=== PATIENT | female | born 1995 | race Hispanic/Latino ===

== ENCOUNTER 2021-08-15 11:17 | Inpatient (IN) | payer MEDICAID ==
[~2021-08-15] VITALS: Ht 157.5 cm; Wt 68.9 kg
[2021-08-15] MEDS ORDERED: LACTATED RINGERS 1000ML 1,000 ML IV ONE (12:01)
[2021-08-15 12:44] LABS: BASOPHILS % (AUTO) 0.5 % (0.0-5.0); EOSINOPHILS % (AUTO) 0.7 % (0.0-8.0); HEMATOCRIT 35.3 % (36-48); LYMPHOCYTES % (AUTO) 17.5 % (21.0-51.0); MEAN CORPUSCULAR HEMOGLOBIN 24.2 pg (27.0-33.0); MEAN CORPUSCULAR HGB CONC 31.4 g/dL (32.0-36.0); MEAN CORPUSCULAR VOLUME 76.9 fL (79-99); MONOCYTES % (AUTO) 6.8 % (3.0-13.0); NEUTROPHILS % (AUTO) 74.1 % (40.0-77.0); PLATELET COUNT (AUTO) 204 K/uL (130-400); RED BLOOD CELL COUNT(AUTO) 4.59 MIL/uL (4.00-5.50); RED CELL DISTRIBUTION WIDTH 14.3 % (11.0-15.5); WHITE BLOOD COUNT (AUTO) 10.8 K/uL (4.8-10.8)
[2021-08-15 12:47] LABS: APPEARANCE,URINE Clear (CLEAR); BILIRUBIN,URINE Negative (NEGATIVE); COLOR,URINE Yellow (YELLOW); GLUCOSE, URINE (UA) Negative (NEGATIVE); KETONES,URINE Negative (NEGATIVE); LEUKOCYTE ESTERASE ,URINE Trace (NEGATIVE); NITRATE,URINE Negative (NEGATIVE); OCCULT BLOOD,URINE Negative (NEGATIVE); PROTEIN,URINE >=1000 mg/dL (NEGATIVE)
[2021-08-15 12:53] LABS: POTASSIUM 4.1 mmol/L (3.5-5.1)
[2021-08-15 12:54] LABS: CREATININE 0.6 mg/dL (0.5-1.5)
[2021-08-15 12:56] LABS: INR 0.85 (0.85-1.15); PROTHROMBIN TIME 9.4 SEC (9.6-11.6)
[2021-08-15 12:57] LABS: PARTIAL THROMBOPLASTIN TIME 24.1 SEC (26.3-35.5)
[2021-08-15 12:59] LABS: BILIRUBIN,TOTAL 0.2 mg/dL (0.2-1.0); TOTAL PROTEIN, SERUM 6.6 g/dL (6.0-8.3)
[2021-08-15] MEDS ORDERED: LACTATED RINGERS 1000ML 1,000 ML IV SCH ×2 (13:00→18:00)
[2021-08-15] MEDS ORDERED: LACTATED RINGERS 1000ML 1,000 ML IV PRN (13:00)
[2021-08-15] MEDS ORDERED: CEFAZOLIN SODIUM 1 GM VIAL IVP PRN (13:00)
[2021-08-15] MEDS ORDERED: CALDOLOR 800MG+NS 250ML 250 ML IV PRN (13:00)
[2021-08-15 13:07] LABS: BACTERIA,URINE Rare /HPF (None Seen); RBC,URINE 0-1 /HPF (0-1); WBC,URINE 0-1 /HPF (0-1)
[2021-08-15 13:08] LABS: SQUAMOUS EPITHELIAL CELL,UR 0-2 /HPF (0-2)
[2021-08-15] MEDS ORDERED: MAGNESIUM 4GM PREMIX 100ML 100 ML IV ONE (13:28)
[2021-08-15] MEDS ORDERED: HYDRALAZINE 20MG/ML VIAL IM SCH (13:30)
[2021-08-15] MEDS ORDERED: MAGNESIUM 4GM PREMIX 100ML 100 ML IV SCH (13:30)
[2021-08-15] MEDS ORDERED: MAGNESIUM SULFATE 40GM/1000ML 1,000 ML IV PRN ×2 (13:30→18:00)
[2021-08-15] MEDS ORDERED: CALCIUM GLUC 1GM/10ML VIAL IV PRN ×2 (13:30→18:00)
[2021-08-15] MEDS ORDERED: MAGNESIUM SULFATE 40GM/1000ML 1,000 ML IV ONE (13:38)
[2021-08-15] MEDS ORDERED: HYDRALAZINE 20MG/ML VIAL ONE (13:41)
[2021-08-15] MEDS ORDERED: PHENYLEPHRINE HCL 10 MG/ML 1ML VIAL IV ONE (16:27)
[2021-08-15] MEDS ORDERED: FENTANYL CITRATE PF 50 MCG/1 ML 2ML VIAL ONE (16:28)
[2021-08-15] MEDS ORDERED: MORPHINE PF 100MG/10ML AMP IV ONE (16:28)
[2021-08-15] MEDS ORDERED: METOCLOPRAMIDE 10 MG/2 ML VIAL ONE (16:57)
[2021-08-15] MEDS ORDERED: ONDANSETRON 4MG INJ ONE (17:03)
[2021-08-15] MEDS ORDERED: MIDAZOLAM HCL 1 MG/ML 2ML VIAL ONE (17:08)
[2021-08-15] MEDS ORDERED: OXYTOCIN 10 UNIT/1ML 10ML VIAL ONE (17:21)
[2021-08-15] MEDS ORDERED: OXYTOCIN 10 USP UNITS/ML IV PRN (18:00)
[2021-08-15] MEDS ORDERED: MAGNESIUM 4GM PREMIX 100ML 100 ML IV PRN (18:00)
[2021-08-15] MEDS ORDERED: MEPERIDINE-PF 75 MG/ML SYG IM PRN (18:00)
[2021-08-15] MEDS ORDERED: 0.9%NACL 10ML VIAL IVP PRN (18:00)
[2021-08-15] MEDS ORDERED: DEXTROSE 5 %-0.45 % NACL 1,000 ML IV PRN (18:00)
[2021-08-15] MEDS ORDERED: PROMETHAZINE HCL 25 MG/ML 1ML AMPULE IM PRN (18:00)
[2021-08-15] MEDS ORDERED: OXYTOCIN-LR 20 UNITS/1000 ML 1,000 ML IV PRN (18:00)
[2021-08-15] MEDS ORDERED: EPHEDRINE SULFATE 50 MG/ML AMPULE IVP PRN (19:00)
[2021-08-15] MEDS ORDERED: ONDANSETRON 4MG INJ IVP PRN (19:00)
[2021-08-15] MEDS ORDERED: LORATADINE 10 MG TABLET PO PRN (19:00)
[2021-08-15] MEDS ORDERED: DiphenhydrAMINE HCL 50 MG/ML VIAL IVP PRN (19:00)
[2021-08-15] MEDS ORDERED: NALOXONE HCL 0.4 MG/1 ML ML IVP PRN ×3 (19:00)
[2021-08-16] MEDS: CALDOLOR 800MG+NS 250ML 250 ML IV SCH ×2 (02:13→10:15)
[2021-08-16 03:13] VITALS: BP 124/77
[2021-08-16 07:06] LABS: HEMATOCRIT 29.3 % (36-48); MEAN CORPUSCULAR HEMOGLOBIN 24.3 pg (27.0-33.0); MEAN CORPUSCULAR HGB CONC 32.1 g/dL (32.0-36.0); MEAN CORPUSCULAR VOLUME 75.7 fL (79-99); RED BLOOD CELL COUNT(AUTO) 3.87 MIL/uL (4.00-5.50)
[2021-08-16] MEDS ORDERED: BISACODYL 10 MG SUPP.RECT RC PRN (12:00)
[2021-08-16] MEDS ORDERED: DIPH,PERTUSS(ACELL),TET VAC/PF 0.5 ML VIAL IM SCH (12:00)
[2021-08-16] MEDS ORDERED: ACETAMINOPHEN 500 MG TABLET PO PRN (12:00)
[2021-08-16] MEDS ORDERED: ACETAMINOPHEN WITH CODEINE 1 TAB TAB PO PRN (12:00)
[2021-08-16] MEDS ORDERED: LANOLIN 30GM OINTMENT TP PRN (12:00)
[2021-08-16] MEDS ORDERED: HYDROCODONE/ACETAMINOPHEN 5/325 MG TAB PO PRN (12:00)
[2021-08-16] MEDS ORDERED: MEASLES/MUMPS/RUBELLA VACCINE, LIVE 0.5 ML/VIAL SQ SCH (12:00)
[2021-08-16] MEDS ORDERED: IBUPROFEN 600 MG TABLET PO PRN (12:00)
[2021-08-16 12:50] VITALS: BP 130/90
[2021-08-16] MEDS ORDERED: PREN-196 PO (13:20)
[2021-08-16 16:51] VITALS: BP 128/93
[2021-08-16] MEDS ORDERED: AMMONIA 1 EA AMP IH ONE (17:20)
[2021-08-16] MEDS: SIMETHICONE 80 MG TAB.CHEW PO PRN ×2 (17:30→20:47)
[2021-08-16] MEDS: IBUPROFEN 800 MG TAB PO SCH (17:30)
[2021-08-16 19:52] VITALS: BP 119/78
[2021-08-16] MEDS: DOCUSATE SODIUM 100 MG CAP PO SCH (20:47)
[2021-08-16 23:13] VITALS: BP 124/77
[2021-08-17] MEDS: IBUPROFEN 800 MG TAB PO SCH ×2 (01:32→09:50)
[2021-08-17 02:56] VITALS: BP 122/79
[2021-08-17 07:32] VITALS: BP 126/91
[2021-08-17] MEDS: DOCUSATE SODIUM 100 MG CAP PO SCH (08:31)
[2021-08-17] MEDS: SIMETHICONE 80 MG TAB.CHEW PO PRN (08:31)
[2021-08-17 11:41] VITALS: BP 127/79
[2021-08-17] MEDS ORDERED: IBUP-2077 PO (13:22)
[2021-08-17] MEDS ORDERED: ACET1TAB25 PO (13:22)
[2021-08-17] MEDS ORDERED: DOCU-116 PO (13:22)
== END 2021-08-17 14:10 | disposition home or self-care (01) | DRG 539 ==
LOC: EDH 11:17 → LDH 11:21 → OBSVTOIN 11:21 → WSH 08-16 12:45
PROVIDERS: ADMIT Obstetrics & Gynecology; ATTEND Obstetrics & Gynecology
PROC: 0UB70ZZ Excision of Bilateral Fallopian Tubes, Open Approach (ICD-10-PCS; 2021-08-15)
PROC: 10D00Z1 Extraction of Products of Conception, Low, Open Approach (ICD-10-PCS; principal; 2021-08-15 17:32)
DX: O14.14 Severe pre-eclampsia complicating childbirth (principal); K66.0 Peritoneal adhesions (postprocedural) (postinfection); O34.211 Maternal care for low transverse scar from previous cesarean delivery; O69.81X0 Labor and delivery complicated by cord around neck, without compression, not applicable or unspecified; O99.62 Diseases of the digestive system complicating childbirth; Z37.0 Single live birth; Z3A.37 37 weeks gestation of pregnancy; Z30.2 Encounter for sterilization
CPT/HCPCS: 36415; 59510; 80053; 81001; 83735; 84550; 85025; 85027; 85384; 85610; 85730; 86592; 86850; 86900; 86901; 87340; A4344; G0378; J0360; J0690; J1741; J2250; J2274; J2370; J2405; J2590; J2765; J3010; J3475; J3490; J7120

== ENCOUNTER 2021-12-28 22:54 | Inpatient (IN) | payer OTHER, MEDICAID ==
[~2021-12-28] VITALS: Ht 165.1 cm; Wt 61.0 kg
[~2021-12-28 22:54] MED LIST: ACET-2079 PO; DOCU-116 PO; IBUP-2077 PO; PREN-196 PO
[2021-12-28] MEDS ORDERED: 0.9%NACL 1000ML 1,000 ML IV ONE (23:30)
[2021-12-28 23:48] LABS: BASOPHILS % (AUTO) 0.5 % (0.0-5.0); EOSINOPHILS % (AUTO) 7.4 % (0.0-8.0); HEMATOCRIT 31.2 % (36-48); LYMPHOCYTES % (AUTO) 19.8 % (21.0-51.0); MEAN CORPUSCULAR HEMOGLOBIN 22.8 pg (27.0-33.0); MEAN CORPUSCULAR HGB CONC 32.1 g/dL (32.0-36.0); MEAN CORPUSCULAR VOLUME 71.2 fL (79-99); MONOCYTES % (AUTO) 7.1 % (3.0-13.0); NEUTROPHILS % (AUTO) 64.4 % (40.0-77.0); PLATELET COUNT (AUTO) 463 K/uL (130-400); RED BLOOD CELL COUNT(AUTO) 4.38 MIL/uL (4.00-5.50); RED CELL DISTRIBUTION WIDTH 14.5 % (11.0-15.5); WHITE BLOOD COUNT (AUTO) 15.5 K/uL (4.8-10.8)
[2021-12-29] MEDS ORDERED: MORPHINE 4 MG SYG IVP ONE
[2021-12-29] MEDS ORDERED: ONDANSETRON 4MG INJ IVP ONE
[2021-12-29 00:04] LABS: APPEARANCE,URINE CLEAR (CLEAR); BILIRUBIN,URINE SMALL (NEGATIVE); COLOR,URINE YELLOW (YELLOW); GLUCOSE, URINE (UA) NEGATIVE (NEGATIVE); KETONES,URINE 5 mg/dL (NEGATIVE); LEUKOCYTE ESTERASE ,URINE NEGATIVE (NEGATIVE); NITRATE,URINE NEGATIVE (NEGATIVE); OCCULT BLOOD,URINE NEGATIVE (NEGATIVE); PH,URINE 6.5 (5.0-8.0); PROTEIN,URINE 30 mg/dL (NEGATIVE); UROBILINOGEN,URINE 0.2 mg/dL (0.2-1.0)
[2021-12-29 00:12] LABS: HCG,QUAL RESULT NEGATIVE (NEGATIVE)
[2021-12-29 00:24] LABS: ALBUMIN 2.9 g/dL (3.5-5.0); BILIRUBIN,TOTAL 0.2 mg/dL (0.2-1.0); CREATININE 0.9 mg/dL (0.5-1.5); TOTAL PROTEIN, SERUM 7.9 g/dL (6.0-8.3)
[2021-12-29 00:39] LABS: BACTERIA,URINE None Seen /HPF (None Seen); MUCUS,URINE Few LPF (None Seen); RBC,URINE 0-1 /HPF (0-1); SQUAMOUS EPITHELIAL CELL,UR Few /HPF (0-2); WBC,URINE 0-1 /HPF (0-1)
[2021-12-29 00:43] LABS: POTASSIUM 2.5 mmol/L (3.5-5.1)
[2021-12-29] MEDS ORDERED: POTASSIUM CHLORIDE 20 MEQ/100 ML BAG IV SCH (01:00)
[2021-12-29] MEDS ORDERED: POTASSIUM BICARB/CIT AC 25 MEQ TABLET.EFF PO ONE (01:00)
[2021-12-29] MEDS ORDERED: ONDANSETRON 4MG INJ IV PRN (02:30)
[2021-12-29] MEDS ORDERED: HYDROMORPHONE 0.5 MG SYG (0.5MG/0.5ML) IVP PRN (02:30)
[2021-12-29] MEDS ORDERED: 0.9%NACL 1000ML 1,000 ML IV ONE (02:30)
[2021-12-29] MEDS ORDERED: KETOROLAC 15MG/ML VIAL (15MG/ML) IV PRN (02:30)
[2021-12-29] MEDS: 0.9%NACL 1000ML 1,000 ML IV SCH ×4 (02:30→21:24)
[2021-12-29] MEDS ORDERED: ZOSYN 3.375GM+NS 50ML 50 ML ONE (03:58)
[2021-12-29] MEDS ORDERED: ZOSYN 3.375GM+NS 50ML 50 ML IV SCH (05:00)
[2021-12-29 05:21] LABS: HEMOGLOBIN A1C 5.6 % (4.0-6.0)
[2021-12-29 05:27] LABS: MAGNESIUM 1.2 mg/dL (1.80-2.40); POTASSIUM 3.1 mmol/L (3.5-5.1)
[2021-12-29] MEDS ORDERED: PHARMACY COMMUNICATION MISC SCH ×3 (08:30→23:30)
[2021-12-29] MEDS: FAMOTIDINE 20MG VIAL IV SCH ×2 (08:31→21:17)
[2021-12-29] MEDS ORDERED: POTASSIUM CHLORIDE 10% ELIXIR 20 MEQ/15 ML UDCUP PO PRN (09:00)
[2021-12-29] MEDS ORDERED: POTASSIUM CHLORIDE 20MEQ/100ML 100 ML IV PRN (09:00)
[2021-12-29] MEDS ORDERED: MORPHINE 2 MG SYG IVP PRN (09:00)
[2021-12-29] MEDS: KCL 20 MEQ ERTAB PO PRN ×2 (09:31→21:18)
[2021-12-29] MEDS ORDERED: COMPOUND PO MISCELLANEOUS 1 EACH MISC MISC PRN (10:30)
[2021-12-29 12:00] VITALS: BP 105/60
[2021-12-29] MEDS ORDERED: VANCOMYCIN 1G 2 GM, 0.9%NACL 20 ML VIAL 80 ML PO SCH ×6 (13:00→18:00)
[2021-12-29 16:00] VITALS: BP 110/71
[2021-12-29] MEDS ORDERED: VANC125C6 PO (16:11)
[2021-12-29] MEDS ORDERED: VANCOMYCIN HCL 125 MG PO SCH (18:00)
[2021-12-29] MEDS: MAGNESIUM 2GM PREMIX 50ML 50 ML IV PRN ×2 (20:04→21:18)
[2021-12-29 21:35] VITALS: BP 100/62
[2021-12-30] VITALS (20 sets, daily range): BP systolic 90–113; BP diastolic 50–75
[2021-12-30 04:28] LABS: HEMATOCRIT 26.9 % (36-48); MEAN CORPUSCULAR HEMOGLOBIN 22.4 pg (27.0-33.0); MEAN CORPUSCULAR HGB CONC 30.1 g/dL (32.0-36.0); MEAN CORPUSCULAR VOLUME 74.5 fL (79-99); RED BLOOD CELL COUNT(AUTO) 3.61 MIL/uL (4.00-5.50); RED CELL DISTRIBUTION WIDTH 14.7 % (11.0-15.5); WHITE BLOOD COUNT (AUTO) 15.1 K/uL (4.8-10.8)
[2021-12-30 04:31] LABS: CREATININE 0.6 mg/dL (0.5-1.5); POTASSIUM 3.1 mmol/L (3.5-5.1)
[2021-12-30 04:33] LABS: BILIRUBIN,TOTAL 0.3 mg/dL (0.2-1.0); MAGNESIUM 2.3 mg/dL (1.80-2.40); TOTAL PROTEIN, SERUM 5.9 g/dL (6.0-8.3)
[2021-12-30] MEDS: KCL 20 MEQ ERTAB PO PRN ×3 (05:01→20:22)
[2021-12-30 07:55] LABS: INR 0.97 (0.85-1.15); PROTHROMBIN TIME 10.6 SEC (9.6-11.6)
[2021-12-30 07:56] LABS: PARTIAL THROMBOPLASTIN TIME 27.3 SEC (26.3-35.5)
[2021-12-30] MEDS ORDERED: COMPOUND PO MISCELLANEOUS 1 EACH MISC MISC PRN (08:30)
[2021-12-30] MEDS: FAMOTIDINE 20MG VIAL IV SCH ×2 (10:06→20:21)
[2021-12-30] MEDS: 0.9%NACL 1000ML 1,000 ML IV SCH ×3 (10:07→20:41)
[2021-12-30] MEDS: VANCOMYCIN 1G 2 GM, 0.9%NACL 20 ML VIAL 80 ML PO SCH ×6 (12:51→20:28)
[2021-12-30 13:38] LABS: INR 0.96 (0.85-1.15); PROTHROMBIN TIME 10.5 SEC (9.6-11.6)
[2021-12-30 13:39] LABS: PARTIAL THROMBOPLASTIN TIME 26.6 SEC (26.3-35.5)
[2021-12-30] MEDS ORDERED: MAGNESIUM CITRATE 296 ML SOLUTION PO ONE (17:30)
[2021-12-30] MEDS: LACTULOSE 20 GM/30 ML UDCUP PO SCH ×2 (17:36→20:22)
[2021-12-30] MEDS ORDERED: PEG 3350/NA SULF,BICARB,CL/KCL 4000 ML SOLN PO ONE (18:00)
[2021-12-30] MEDS ORDERED: LACTULOSE 20 GM/30 ML UDCUP ONE (20:16)
[2021-12-31] VITALS (23 sets, daily range): BP systolic 84–118; BP diastolic 47–78
[2021-12-31] MEDS: 0.9%NACL 1000ML 1,000 ML IV SCH ×2 (02:07→09:56)
[2021-12-31] MEDS: VANCOMYCIN 1G 2 GM, 0.9%NACL 20 ML VIAL 80 ML PO SCH ×10 (06:14→22:49)
[2021-12-31 06:37] LABS: BASOPHILS % (AUTO) 0.4 % (0.0-5.0); HEMATOCRIT 26.3 % (36-48); LYMPHOCYTES % (AUTO) 20.8 % (21.0-51.0); MEAN CORPUSCULAR HEMOGLOBIN 22.8 pg (27.0-33.0); MEAN CORPUSCULAR HGB CONC 30.4 g/dL (32.0-36.0); MEAN CORPUSCULAR VOLUME 74.9 fL (79-99); MONOCYTES % (AUTO) 8.1 % (3.0-13.0); NEUTROPHILS % (AUTO) 59.1 % (40.0-77.0); PLATELET COUNT (AUTO) 404 K/uL (130-400); RED BLOOD CELL COUNT(AUTO) 3.51 MIL/uL (4.00-5.50); RED CELL DISTRIBUTION WIDTH 15.1 % (11.0-15.5)
[2021-12-31 07:04] LABS: ALBUMIN 2.4 g/dL (3.5-5.0); BILIRUBIN,TOTAL 0.3 mg/dL (0.2-1.0); CREATININE 0.6 mg/dL (0.5-1.5); MAGNESIUM 1.7 mg/dL (1.80-2.40); POTASSIUM 3.4 mmol/L (3.5-5.1); TOTAL PROTEIN, SERUM 6.6 g/dL (6.0-8.3)
[2021-12-31] MEDS ORDERED: PROPOFOL 10 MG/ML 20ML VIAL IV ONE (09:30)
[2021-12-31] MEDS: MAGNESIUM 2GM PREMIX 50ML 50 ML IV PRN (09:56)
[2021-12-31] MEDS: PANTOPRAZOLE 40 MG TAB DR PO SCH (09:56)
[2021-12-31] MEDS: FAMOTIDINE 20MG VIAL IV SCH ×2 (09:56→20:59)
[2021-12-31] MEDS: KCL 20 MEQ ERTAB PO PRN ×2 (14:10→20:59)
[2021-12-31] MEDS: SULFASALAZINE 500 MG TAB.DR PO SCH ×2 (17:37→20:59)
[2022-01-01] VITALS: BP 102/64
[2022-01-01 04:00] VITALS: BP 98/62
[2022-01-01 05:54] LABS: HEMATOCRIT 25.4 % (36-48); MEAN CORPUSCULAR HEMOGLOBIN 22.2 pg (27.0-33.0); MEAN CORPUSCULAR HGB CONC 29.9 g/dL (32.0-36.0); MEAN CORPUSCULAR VOLUME 74.3 fL (79-99); RED BLOOD CELL COUNT(AUTO) 3.42 MIL/uL (4.00-5.50); RED CELL DISTRIBUTION WIDTH 15.2 % (11.0-15.5); WHITE BLOOD COUNT (AUTO) 12.7 K/uL (4.8-10.8)
[2022-01-01 06:13] LABS: CREATININE 0.7 mg/dL (0.5-1.5); POTASSIUM 3.7 mmol/L (3.5-5.1)
[2022-01-01] MEDS: VANCOMYCIN 1G 2 GM, 0.9%NACL 20 ML VIAL 80 ML PO SCH ×4 (06:47→11:43)
[2022-01-01 09:11] VITALS: BP 102/58
[2022-01-01] MEDS: SULFASALAZINE 500 MG TAB.DR PO SCH ×2 (10:20→14:08)
[2022-01-01] MEDS: PANTOPRAZOLE 40 MG TAB DR PO SCH (10:20)
[2022-01-01] MEDS: FAMOTIDINE 20MG VIAL IV SCH (10:20)
[2022-01-01 12:15] VITALS: BP 94/55
[2022-01-01] MEDS: MAGNESIUM 2GM PREMIX 50ML 50 ML IV PRN (14:22)
[2022-01-01] MEDS ORDERED: SULF500EC PO (14:26)
[2022-01-01] MEDS ORDERED: VANC125C12 PO (14:26)
[2022-01-01 16:00] VITALS: BP 99/60
== END 2022-01-01 16:30 | disposition home or self-care (01) | DRG 391 ==
LOC: EDH 22:54 → UNDOADMIN 22:55 → EDHIP 22:55 → 4DH 12-29 12:28 → 3BH 12-30 19:57 → 4DH 12-30 19:57
PROVIDERS: ADMIT Hospitalist; ATTEND Hospitalist
PROC: 0DB98ZX Excision of Duodenum, Via Natural or Artificial Opening Endoscopic, Diagnostic (ICD-10-PCS; 2021-12-30)
PROC: 0DB68ZX Excision of Stomach, Via Natural or Artificial Opening Endoscopic, Diagnostic (ICD-10-PCS; 2021-12-30)
PROC: 0DB58ZX Excision of Esophagus, Via Natural or Artificial Opening Endoscopic, Diagnostic (ICD-10-PCS; 2021-12-30)
PROC: 0DBE8ZX Excision of Large Intestine, Via Natural or Artificial Opening Endoscopic, Diagnostic (ICD-10-PCS; principal; 2021-12-31)
DX: K29.00 Acute gastritis without bleeding (principal); K85.90 Acute pancreatitis without necrosis or infection, unspecified; A04.72 Enterocolitis due to Clostridium difficile, not specified as recurrent; Z20.822 Contact with and (suspected) exposure to COVID-19; E78.2 Mixed hyperlipidemia; E86.0 Dehydration; K29.80 Duodenitis without bleeding; E87.6 Hypokalemia; K82.8 Other specified diseases of gallbladder; K27.9 Peptic ulcer, site unspecified, unspecified as acute or chronic, without hemorrhage or perforation; D64.9 Anemia, unspecified; Z98.51 Tubal ligation status; Z83.3 Family history of diabetes mellitus
CPT/HCPCS: 36415; 43239; 45380; 76705; 80048; 80053; 80061; 81001; 81025; 82270; 83036; 83605; 83690; 83735; 84132; 84703; 85025; 85027; 85610; 85730; 87040; 87046; 87324; 87507; 87635; A4606; G0378; J1885; J2270; J2405; J2543; J2704; J3370; J3475; J3480; J3490; J7030